=== PATIENT | female | born 1995 ===

== ENCOUNTER 2017-01-20 13:41 | Emergency (ER) | payer BC ==
[2017-01-20 14:01] VITALS: BP 114/64
--- NOTE | 2017-01-20 14:18 | UC ---
Throat Pain/Nasal Luciano HPI - HPI Summary HPI Summary: nasal congestion x 3 days + sinus pressure , pnd , no cough, no fever, no chills has been having difficulty sleeping at night for the past few weeks - History of Current Complaint Chief Complaint: UCRespiratory Stated Complaint: SINUS CONGESTION Time Seen by Provider: 01/20/17 14:06 Hx Obtained From: Patient Hx Last Menstrual Period: last week ?: No Onset/Duration: Gradual Onset, Lasting Days - 3, Still Present Severity: Moderate Cough: None Associated Signs & Symptoms: Positive: Sinus Discomfort, Nasal Discharge. Negative: Dysphagia, FB Sensation, Drooling, Wheezing, Hoarseness, Fever, Vomiting, Rash - Allergies/Home Medications Allergies/Adverse Reactions: Allergies Allergy/AdvReac Type Severity Reaction Status Date / Time No Known Allergies Allergy Verified 01/20/17 14:01 Home Medications: Home Medications Dextromethorphan-Phenylephrine [Vicks Dayquil Cold & Flu] 2 cap PO DAILY PRN [History Confirmed 01/20/17] Norgestimate-Ethinyl Estradiol [Sprintec 28 0.25-35 mg-Mcg] 1 tab PO DAILY 01/20 [History Confirmed 01/20/17] [id number] [Nyquil Severe Cold/Flu 5-6.25-10-325 mg/15Ml] 2 tab PO QPM PRN 01/20/17 [History Confirmed 01/20/17] PMH/Surg Hx/FS Hx/Imm Hx Previously Healthy: Yes - Surgical History Surgical History: None - Family History Known Family History: Negative: Diabetes - Social History Alcohol Use: Occasionally Substance Use Type: None Smoking Status (MU): Never Smoked Tobacco Review of Systems Constitutional: Negative Skin: Negative Eyes: Negative ENT: Nasal Discharge Respiratory: Negative Cardiovascular: Negative Gastrointestinal: Negative Genitourinary: Negative Musculoskeletal: Negative Psychological: Negative All Other Systems Reviewed And Are Negative: Yes Physical Exam Triage Information Reviewed: Yes Appearance: Well-Appearing, No Pain Distress, Well-Nourished Vital Signs: Initial Vital Signs Temp 99.7 F 01/20/17 13:51 Pulse 90 01/20/17 13:51 Resp 18 01/20/17 13:51 BP 114/64 01/20/17 13:51 Pulse Ox 98 01/20/17 13:51 Vital Signs Reviewed: Yes Eyes: Positive: Conjunctiva Clear ENT: Positive: Normal ENT inspection, Hearing grossly normal, Pharynx normal, Nasal congestion, Nasal drainage, TMs normal. Negative: Pharyngeal erythema Neck: Positive: Supple, Nontender, No Lymphadenopathy Respiratory: Positive: Chest non-tender, Lungs clear, Normal breath sounds Cardiovascular: Positive: RRR, No Murmur, Pulses Normal Neurological Exam: Normal Psychological Exam: Normal Skin Exam: Normal Throat Pain/Nasal Course/Dx - Differential Dx/Diagnosis Provider Diagnoses: uri. insomnia Discharge - Discharge Plan Condition: Stable Disposition: HOME Prescriptions: hydrOXYzine PAMOATE CAP* [Vistaril CAP*] 25 mg PO BEDTIME PRN #20 cap PRN Reason: Insomnia Patient Education Materials: Upper Respiratory Infection (ED), Insomnia (ED) Additional Instructions: may use flonase nasal spray daily to help you with sinus pressure follow up with your pcp in 10 days
== END 2017-01-20 14:25 | disposition home or self-care (01) ==
LOC: UCCORT 13:41
DX: J06.9 Acute upper respiratory infection, unspecified (principal); G47.00 Insomnia, unspecified
CPT/HCPCS: 99202; G0463

== ENCOUNTER 2017-07-24 08:24 | Emergency (ER) | payer BC ==
--- NOTE | 2017-07-24 08:55 | UC ---
Throat Pain/Nasal Luciano HPI - HPI Summary HPI Summary: SORE THROAT, FATIGUE, SINUS CONGESTION SINCE YESTERDAY. NO RASHES. NO ABDOMINAL PAIN. - History of Current Complaint Chief Complaint: UCRespiratory Stated Complaint: SORE THROAT Time Seen by Provider: 07/24/17 08:32 Hx Obtained From: Patient Hx Last Menstrual Period: 06/28/17 Onset/Duration: Gradual Onset, Lasting Days, Still Present Severity: Moderate Cough: None Associated Signs & Symptoms: Positive: Hoarseness, Sinus Discomfort, Nasal Discharge, Fever - Epiglottits Risk Factors Epiglottis Risk Factors: Negative - Allergies/Home Medications Allergies/Adverse Reactions: Allergies Allergy/AdvReac Type Severity Reaction Status Date / Time No Known Allergies Allergy Verified 07/24/17 08:27 Home Medications: Home Medications Amphetamine-Dextroamphetamine [Adderall 10 mg-] 2 tab PO DAILY 07/24/17 [ History Confirmed 07/24/17] PMH/Surg Hx/FS Hx/Imm Hx Previously Healthy: Yes - Surgical History Surgical History: None - Family History Known Family History: Negative: Diabetes - Social History Occupation: Student Lives: With Family Alcohol Use: Occasionally Substance Use Type: None Smoking Status (MU): Never Smoked Tobacco Review of Systems Constitutional: Negative Skin: Negative Eyes: Negative ENT: Sore Throat, Nasal Discharge, Sinus Congestion Respiratory: Negative Cardiovascular: Negative Gastrointestinal: Negative Genitourinary: Negative Motor: Negative Neurovascular: Negative Musculoskeletal: Negative Neurological: Negative Psychological: Negative All Other Systems Reviewed And Are Negative: Yes Physical Exam Triage Information Reviewed: Yes Appearance: No Pain Distress, Well-Nourished, Ill-Appearing Vital Signs: Initial Vital Signs Temp 98.5 F 07/24/17 08:29 Pulse 88 07/24/17 08:29 Resp 14 07/24/17 08:29 BP 106/59 07/24/17 08:29 Pulse Ox 99 07/24/17 08:29 Vital Signs Reviewed: Yes Eye Exam: Normal ENT: Positive: Hearing grossly normal, Pharyngeal erythema, Nasal congestion, TMs normal Dental Exam: Normal Neck exam: Normal Respiratory Exam: Normal Respiratory: Positive: Chest non-tender, Lungs clear, Normal breath sounds, No respiratory distress, No accessory muscle use Cardiovascular Exam: Normal Cardiovascular: Positive: RRR, No Murmur, Pulses Normal, Brisk Capillary Refill Abdominal Exam: Normal Abdomen Description: Positive: Nontender, No Organomegaly, Soft Musculoskeletal Exam: Normal Musculoskeletal: Positive: Strength Intact, ROM Intact Neurological Exam: Normal Psychological Exam: Normal Skin Exam: Normal Throat Pain/Nasal Course/Dx - Differential Dx/Diagnosis Differential Diagnosis/HQI/PQRI: Pharyngitis, Tonsillitis Provider Diagnoses: STREP TONSILLITIS Discharge - Discharge Plan Condition: Stable Disposition: HOME Prescriptions: Amoxicillin/Clavulanate TAB* [Augmentin TAB 875*] 875 mg PO BID #20 tab Patient Education Materials: Strep Throat (ED) Forms: *School Release Referrals: [facility] [place] [facility] [Outside] Non Staff,Doctor [Primary Care Provider] -
[2017-07-24 08:56] VITALS: BP 106/59
== END 2017-07-24 08:52 | disposition home or self-care (01) ==
LOC: UCCORT 08:24
DX: J03.00 Acute streptococcal tonsillitis, unspecified (principal)
CPT/HCPCS: 87651; 99212; G0463

== ENCOUNTER 2017-08-26 12:54 | Emergency (ER) | payer BC | END 2017-08-26 14:12 | disposition left against medical advice (07) | LOC: UCCORT 12:54 | DX: J34.89 Other specified disorders of nose and nasal sinuses (principal); R51 Headache; R09.89 Other specified symptoms and signs involving the circulatory and respiratory systems; Z53.21 Procedure and treatment not carried out due to patient leaving prior to being seen by health care provider ==

== ENCOUNTER 2017-09-05 16:05 | Emergency (ER) | payer BC ==
--- NOTE | 2017-09-05 17:10 | UC ---
Throat Pain/Nasal Luciano HPI - HPI Summary HPI Summary: 22 y/o female presents to the urgent care c/o sinus congestion, sinus pain for the past 2 weeks. Symptoms started with common cold. However now nasal congestion is with green nasal discharge, productive cough with green sputum, subjective fever at home, headache, sinus pressure. Pt has taken Sudafed, Mucinex w/o any relief of symptoms. Pt denies SOB, chest pain, N/V/D, abdominal pain. [ End ] - History of Current Complaint Chief Complaint: UCGeneralIllness Stated Complaint: RESP ISSUE Time Seen by Provider: 09/05/17 16:56 Hx Obtained From: Patient Hx Last Menstrual Period: 08/24/17 ?: No Onset/Duration: Gradual Onset, Lasting Weeks - 2 weeks, Still Present Severity: Moderate Pain Intensity: 5 - sinus pain Pain Scale Used: 0-10 Numeric Cough: Sputum Appears - green Associated Signs & Symptoms: Positive: Sinus Discomfort, Nasal Discharge, Fever - subjective at home - Epiglottits Risk Factors Epiglottis Risk Factors: Negative - Allergies/Home Medications Allergies/Adverse Reactions: Allergies Allergy/AdvReac Type Severity Reaction Status Date / Time No Known Allergies Allergy Verified 09/05/17 16:57 PMH/Surg Hx/FS Hx/Imm Hx Previously Healthy: Yes Other Psychological History: ADHD - Surgical History Surgical History: None - Family History Known Family History: Positive: None - Pt denies FMHX Negative: Diabetes - Social History Occupation: Employed Full-time Lives: With Family Alcohol Use: Occasionally Alcohol Amount: few times a week Substance Use Type: None Smoking Status (MU): Never Smoked Tobacco - Immunization History Most Recent Influenza Vaccination: none Review of Systems Constitutional: Fever - subjective at home Skin: Negative Eyes: Negative ENT: Nasal Discharge, Sinus Congestion, Sinus Pain/Tenderness Respiratory: Cough Cardiovascular: Negative Gastrointestinal: Negative Genitourinary: Negative Motor: Negative Neurovascular: Negative Musculoskeletal: Negative Neurological: Negative Psychological: Negative Is Patient Immunocompromised?: No All Other Systems Reviewed And Are Negative: Yes Physical Exam Triage Information Reviewed: Yes Vital Signs: Initial Vital Signs Temp 98.9 F 09/05/17 16:53 Pulse 83 09/05/17 16:53 Resp 17 09/05/17 16:53 BP 106/70 09/05/17 16:53 Pulse Ox 100 09/05/17 16:53 - Additional Comments Physical exam: General: Well developed, well-nourished patient with NAD. Head and face: Normocephalic and atraumatic, Positive tenderness over the frontal and maxillary sinuses.. Eyes: PERRLA, EOMI x 2. Normal conjunctiva. No eye discharge. ENT: Ears and TM with normal limits. Nose: with yellowish discharge and erythematous mucosa. Pharynx with erythema , no exudate. Positive postnasal drip Neck: Supple, no JVD, no carotid bruits and no lymphadenopathy. Lungs: clear, no rales, no rhonchi, no wheezes. CVS: RRR, S1 and S2 present no murmurs or gallops appreciated. Abdomen: soft nontender with positive bowel sounds. Extremities: no edema noted. Neuro: WNL. Throat Pain/Nasal Course/Dx - Course Course Of Treatment: 22 y/o female presents to the urgent care c/o sinus congestion, sinus pain for the past 2 weeks. Symptoms started with common cold. However now nasal congestion is with green nasal discharge, productive cough with green sputum, subjective fever at home, headache, sinus pressure. Pt has taken Sudafed, Mucinex w/o any relief of symptoms.Pt denies SOB, chest pain, N/V /D, abdominal pain.Hx obtained. Pt with acute sinusitis on examination. Pt with 2 weeks of symptoms getting worse. Pt Rx Amoxicillin PO and flonase nasal spray. Tessalon PO for cough. Discharge instructions explained to Pt. Advised to Return to the clinic or PCP if symptoms do not improve.Pt understood and agreed with plan of care. - Differential Dx/Diagnosis Differential Diagnosis/HQI/PQRI: Influenza, Laryngitis, Pharyngitis, Sinusitis, Tonsillitis, URI Provider Diagnoses: 1- Acute sinusitis. 2-Cough Discharge - Discharge Plan Condition: Stable Disposition: HOME Prescriptions: Amoxicillin PO (*) [Amoxicillin 875 MG (*)] 875 mg PO BID #20 tab Benzonatate CAP* [Tessalon 100 MG CAP*] 100 mg PO TID #15 cap Fluticasone NASAL SPRAY 50MCG* [Flonase NASAL SPRAY 50MCG*] 2 spray BOTH NARES DAILY #1 btl Patient Education Materials: Sinusitis (ED) Forms: *Physical Education Release Referrals: [facility] [place] [facility] REFERRAL [Outside] - If Needed Non Staff,Doctor [Primary Care Provider] - Additional Instructions: 1- Please increase fluid intake and rest. take full course of antibiotic to avoid resistance 2-Use Flonase as directed to help drain fluid. Also buy saline drops to clear sinuses 3-Take Tessalon PO to alleviates cough. 4-Return to the clinic or PCP if symptoms do not improve for further management and treatment
[2017-09-05 17:23] VITALS: BP 106/70
== END 2017-09-05 17:20 | disposition home or self-care (01) ==
LOC: UCCORT 16:05
DX: J01.90 Acute sinusitis, unspecified (principal); R05 Cough; F90.9 Attention-deficit hyperactivity disorder, unspecified type
CPT/HCPCS: 99212; G0463